=== PATIENT | male | born 2000 | race Caucasian/White ===

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

== ENCOUNTER 2021-07-24 16:18 | Emergency (ER) | payer OTHER ==
[~2021-07-24] VITALS: Ht 182.9 cm; Wt 77.3 kg
[~2021-07-24 16:18] MED LIST: CEPH500C PO
[2021-07-24 16:23] VITALS: BP 139/70
[2021-07-24] MEDS ORDERED: LIDOCAINE 2% MDV 20ML VIAL SC ONE (16:55)
== END 2021-07-24 17:25 | disposition home or self-care (01) ==
LOC: M ED 16:18 → EDBD 16:18 → M ED 17:25
DX: S61.213A Laceration without foreign body of left middle finger without damage to nail, initial encounter (principal); W26.0XXA Contact with knife, initial encounter; Y92.9 Unspecified place or not applicable; Y93.9 Activity, unspecified; Y99.9 Unspecified external cause status

== ENCOUNTER 2021-11-29 16:21 | Emergency (ER) | payer OTHER ==
[~2021-11-29] VITALS: Ht 182.9 cm; Wt 80.7 kg
[2021-11-29 18:11] LABS: HEMOGLOBIN 12.3 g/dl (13.5-17.5); MEAN CORPUSCULAR HGB CONC 33.2 g/dl (32.0-36.5); MEAN CORPUSCULAR VOLUME 87.3 fl (80.0-96.0); PLATELET COUNT, AUTOMATED 288 10^3/uL (150-450); RED BLOOD COUNT 4.24 10^6/uL (4.30-6.10); WHITE BLOOD COUNT 7.6 10^3/uL (4.0-10.0)
[2021-11-29 18:31] LABS: AMPHETAMINES LEVEL URINE NEGATIVE (NEGATIVE); BARBITURATES URINE NEGATIVE (NEGATIVE); BENZODIAZEPINES URINE NEGATIVE (NEGATIVE); CANNABINOIDS URINE NEGATIVE (NEGATIVE); COCAINE METABOLITE URINE NEGATIVE (NEGATIVE); METHADONE URINE NEGATIVE (NEGATIVE); OPIATES URINE NEGATIVE (NEGATIVE); PHENCYCLIDINE URINE NEGATIVE (NEGATIVE)
[2021-11-29 18:45] LABS: ACETAMINOPHEN LEVEL < 2.0 UG/ML (10.0-30.0); ALBUMIN 4.2 GM/DL (3.2-5.2); ALT/SGPT 24 U/L (12-78); BILIRUBIN,DIRECT 0.2 MG/DL (0.0-0.2); BILIRUBIN,TOTAL 0.8 MG/DL (0.2-1.0); BLOOD UREA NITROGEN 19 MG/DL (7-18); CALCIUM LEVEL 9.2 MG/DL (8.5-10.1); CARBON DIOXIDE LEVEL 28 MEQ/L (21-32); CHLORIDE LEVEL 108 MEQ/L (98-107); CREATININE FOR GFR 1.13 MG/DL (0.70-1.30); ETHYL ALCOHOL (ETHANOL) < 0.003 % (0.000-0.010); GLUCOSE, FASTING 93 MG/DL (70-100); POTASSIUM SERUM 4.2 MEQ/L (3.5-5.1); SALICYLATE LEVEL < 1.7 MG/DL (5.0-30.0); SODIUM LEVEL 139 MEQ/L (136-145); TOTAL PROTEIN 7.5 GM/DL (6.4-8.2)
[2021-11-29] MEDS ORDERED: HOME MED LIST COMPLETE! XX SCH (18:45)
[2021-11-29 20:40] VITALS: BP 137/89
== END 2021-11-29 20:43 | disposition home or self-care (01) ==
LOC: M ED 16:21
DX: F32.A Depression, unspecified (principal)

== ENCOUNTER 2022-09-19 19:34 | Emergency (ER) | payer OTHER ==
[~2022-09-19] VITALS: Ht 182.9 cm; Wt 79.8 kg
[2022-09-19 19:34] VITALS: BP 146/88
== END 2022-09-19 21:39 | disposition left against medical advice (07) ==
LOC: M ED 19:34
DX: M54.9 Dorsalgia, unspecified (principal); Z53.21 Procedure and treatment not carried out due to patient leaving prior to being seen by health care provider

== ENCOUNTER 2022-10-22 10:50 | Emergency (ER) | payer OTHER ==
[~2022-10-22] VITALS: Ht 182.9 cm; Wt 77.7 kg
[2022-10-22 10:51] VITALS: BP 125/60
[2022-10-22] MEDS ORDERED: OXYMETAZOLINE 0.05% NASAL SPRAY (AFRIN) STA (11:40)
[2022-10-22] MEDS ORDERED: LORA24TA PO (11:41)
== END 2022-10-22 11:52 | disposition home or self-care (01) ==
LOC: M ED 10:50
DX: R04.0 Epistaxis (principal); J30.2 Other seasonal allergic rhinitis

== ENCOUNTER 2022-10-24 23:30 | Emergency (ER) | payer OTHER ==
[~2022-10-24] VITALS: Ht 182.9 cm; Wt 77.2 kg
[~2022-10-24 23:30] MED LIST changes: +LORA24TA PO
[2022-10-25 00:47] LABS: HEMATOCRIT 36.4 % (42.0-52.0); HEMOGLOBIN 11.9 g/dl (13.5-17.5); MEAN CORPUSCULAR HEMOGLOBIN 28.4 pg (27.0-33.0); MEAN CORPUSCULAR HGB CONC 32.7 g/dl (32.0-36.5); MEAN CORPUSCULAR VOLUME 86.9 fl (80.0-96.0); PLATELET COUNT, AUTOMATED 294 10^3/uL (150-450); RED BLOOD COUNT 4.19 10^6/uL (4.30-6.10); WHITE BLOOD COUNT 7.4 10^3/uL (4.0-10.0)
[2022-10-25 00:56] LABS: ETHYL ALCOHOL (ETHANOL) < 0.003 % (0.000-0.010)
[2022-10-25 00:57] LABS: ACETAMINOPHEN LEVEL < 2.0 UG/ML (10.0-20.0)
[2022-10-25 00:58] LABS: ALBUMIN 4.3 G/DL (3.2-5.2); ALKALINE PHOSPHATASE 90 U/L (46-116); ALT/SGPT 10 U/L (7.0-40); AST/SGOT 9 U/L (<34); BILIRUBIN,DIRECT 0.1 MG/DL (<0.4); BILIRUBIN,TOTAL 0.4 MG/DL (0.3-1.2); BLOOD UREA NITROGEN 14 MG/DL (9-23); CALCIUM LEVEL 9.7 MG/DL (8.5-10.1); CARBON DIOXIDE LEVEL 27 MMOL/L (20-31); CHLORIDE LEVEL 105 MMOL/L (98-107); CREATININE FOR GFR 0.81 MG/DL (0.70-1.30); GLOMERULAR FILTRATION RATE > 60.0 (>60); GLUCOSE, FASTING 100 MG/DL (60-100); POTASSIUM SERUM 3.7 MMOL/L (3.5-5.1); SALICYLATE LEVEL < 3.0 MG/DL (<30); SODIUM LEVEL 139 MMOL/L (136-145); TOTAL PROTEIN 7.5 G/DL (5.7-8.2)
[2022-10-25 00:59] LABS: THYROID STIMULATING HORMONE 6.252 uIU/ML (0.55-4.78)
[2022-10-25 01:10] LABS: AMPHETAMINES LEVEL URINE NEGATIVE (NEGATIVE); BARBITURATES URINE NEGATIVE (NEGATIVE); BENZODIAZEPINES URINE NEGATIVE (NEGATIVE); CANNABINOIDS URINE NEGATIVE (NEGATIVE); COCAINE METABOLITE URINE NEGATIVE (NEGATIVE); METHADONE URINE NEGATIVE (NEGATIVE); OPIATES URINE NEGATIVE (NEGATIVE); PHENCYCLIDINE URINE NEGATIVE (NEGATIVE)
[2022-10-25] MEDS ORDERED: HOME MED LIST COMPLETE! XX SCH (06:20)
[2022-10-25 14:48] VITALS: BP 124/62; TEMP 97.8; O2SAT 98
== END 2022-10-25 14:51 | disposition home or self-care (01) ==
LOC: M ED 23:30
DX: F43.9 Reaction to severe stress, unspecified (principal); F43.10 Post-traumatic stress disorder, unspecified

== ENCOUNTER 2023-01-02 17:41 | Inpatient (IN) | payer OTHER ==
[~2023-01-02] VITALS: Ht 182.9 cm; Wt 77.3 kg
[2023-01-02 18:25] LABS: HEMATOCRIT 39.4 % (42.0-52.0); HEMOGLOBIN 13.1 g/dl (13.5-17.5); MEAN CORPUSCULAR HGB CONC 33.2 g/dl (32.0-36.5); MEAN CORPUSCULAR VOLUME 87.4 fl (80.0-96.0); PLATELET COUNT, AUTOMATED 332 10^3/uL (150-450); RED BLOOD COUNT 4.51 10^6/uL (4.30-6.10); WHITE BLOOD COUNT 7.5 10^3/uL (4.0-10.0)
[2023-01-02 18:51] LABS: ETHYL ALCOHOL (ETHANOL) < 0.003 % (0.000-0.010)
[2023-01-02 18:52] LABS: ACETAMINOPHEN LEVEL < 2.0 UG/ML (10.0-20.0)
[2023-01-02 18:53] LABS: ALBUMIN 4.4 G/DL (3.2-5.2); ALKALINE PHOSPHATASE 92 U/L (46-116); ALT/SGPT 11 U/L (7.0-40); AST/SGOT 9 U/L (<34); BILIRUBIN,DIRECT 0.2 MG/DL (<0.4); BILIRUBIN,TOTAL 0.5 MG/DL (0.3-1.2); BLOOD UREA NITROGEN 17 MG/DL (9-23); CALCIUM LEVEL 9.6 MG/DL (8.5-10.1); CARBON DIOXIDE LEVEL 25 MMOL/L (20-31); CHLORIDE LEVEL 104 MMOL/L (98-107); CREATININE FOR GFR 0.78 MG/DL (0.70-1.30); GLOMERULAR FILTRATION RATE > 60.0 (>60); GLUCOSE, FASTING 87 MG/DL (60-100); POTASSIUM SERUM 3.8 MMOL/L (3.5-5.1); SALICYLATE LEVEL < 3.0 MG/DL (<30); SODIUM LEVEL 139 MMOL/L (136-145); TOTAL PROTEIN 7.6 G/DL (5.7-8.2)
[2023-01-02 18:55] LABS: THYROID STIMULATING HORMONE 1.744 uIU/ML (0.55-4.78)
[2023-01-02 21:50] LABS: AMPHETAMINES LEVEL URINE NEGATIVE (NEGATIVE); BARBITURATES URINE NEGATIVE (NEGATIVE); BENZODIAZEPINES URINE NEGATIVE (NEGATIVE); CANNABINOIDS URINE NEGATIVE (NEGATIVE); COCAINE METABOLITE URINE NEGATIVE (NEGATIVE); METHADONE URINE NEGATIVE (NEGATIVE); OPIATES URINE NEGATIVE (NEGATIVE); PHENCYCLIDINE URINE NEGATIVE (NEGATIVE)
[2023-01-02] MEDS ORDERED: HOME MED LIST COMPLETE! XX SCH (21:55)
[2023-01-02] MEDS ORDERED: diphenhydrAMINE 25MG CAP PO PRN (22:20)
[2023-01-02] MEDS ORDERED: ACETAMINOPHEN TAB 650MG DOSE (2X325MG) PO PRN (22:20)
[2023-01-02] MEDS ORDERED: IBUPROFEN 400MG TAB PO PRN (22:20)
[2023-01-02] MEDS ORDERED: MOM 30ML SUSPENSION UDC PO PRN (22:20)
[2023-01-02] MEDS ORDERED: MAALOX 30 ML SUSP *UDC PO PRN (22:20)
[2023-01-02] MEDS ORDERED: traZODone 50 MG TAB PO PRN (22:20)
[2023-01-03 02:09] VITALS: BP 120/56; TEMP 97.1; O2SAT 98
[2023-01-03 18:58] VITALS: BP 131/58; TEMP 98.6
[2023-01-04 06:32] VITALS: BP 123/71; TEMP 97.6; O2SAT 100
[2023-01-04 18:31] VITALS: BP 139/71; TEMP 97.5
[2023-01-05 06:22] VITALS: BP 112/63; TEMP 98.3; O2SAT 99
[2023-01-05 18:00] VITALS: BP 135/76; TEMP 97.4
[2023-01-06 06:13] VITALS: BP 102/56; TEMP 98.3; O2SAT 97
== END 2023-01-06 11:31 | disposition home or self-care (01) | DRG 885 ==
LOC: M ED 17:41 → M ED INP 22:18 → M PSY 01-03 00:08
PROVIDERS: ADMIT Psychiatry & Neurology Psychiatry; ATTEND Student in an Organized Health Care Education/Training Program
DX: F39 Unspecified mood [affective] disorder (principal); R45.851 Suicidal ideations; F31.9 Bipolar disorder, unspecified; F60.2 Antisocial personality disorder; Z81.8 Family history of other mental and behavioral disorders; Z81.1 Family history of alcohol abuse and dependence; Z81.3 Family history of other psychoactive substance abuse and dependence; Z63.4 Disappearance and death of family member

== ENCOUNTER 2023-01-07 01:44 | Inpatient (IN) | payer OTHER ==
[~2023-01-07] VITALS: Ht 182.9 cm; Wt 77.3 kg
[2023-01-07 02:05] LABS: BASO # 0.1 10^3/uL (0.0-0.2); BASO % 1.4 % (0.0-1.0); EOS # 0.5 10^3/uL (0.0-0.5); EOS % 6.1 % (0.0-3.0); HEMATOCRIT 41.2 % (42.0-52.0); LYMPH % 34.1 % (24.0-44.0); MEAN CORPUSCULAR HEMOGLOBIN 29.2 pg (27.0-33.0); MONO # 0.9 10^3/uL (0.0-0.8); MONO % 10.2 % (2.0-8.0); NEUTROPHILS # 4.2 10^3/uL (1.5-8.5); PLATELET COUNT, AUTOMATED 337 10^3/uL (150-450); RED BLOOD COUNT 4.79 10^6/uL (4.30-6.10); WHITE BLOOD COUNT 8.7 10^3/uL (4.0-10.0)
[2023-01-07 02:37] LABS: ETHYL ALCOHOL (ETHANOL) < 0.003 % (0.000-0.010)
[2023-01-07 02:38] LABS: ACETAMINOPHEN LEVEL < 2.0 UG/ML (10.0-20.0); ALBUMIN 4.7 G/DL (3.2-5.2); ALKALINE PHOSPHATASE 97 U/L (46-116); ALT/SGPT 20 U/L (7.0-40); AST/SGOT 13 U/L (<34); BILIRUBIN,DIRECT 0.2 MG/DL (<0.4); BILIRUBIN,TOTAL 0.4 MG/DL (0.3-1.2); BLOOD UREA NITROGEN 15 MG/DL (9-23); CALCIUM LEVEL 9.9 MG/DL (8.5-10.1); CARBON DIOXIDE LEVEL 25 MMOL/L (20-31); CHLORIDE LEVEL 103 MMOL/L (98-107); CREATININE FOR GFR 0.79 MG/DL (0.70-1.30); GLOMERULAR FILTRATION RATE > 60.0 (>60); GLUCOSE, FASTING 100 MG/DL (60-100); POTASSIUM SERUM 3.8 MMOL/L (3.5-5.1); SALICYLATE LEVEL < 3.0 MG/DL (<30); SODIUM LEVEL 138 MMOL/L (136-145); TOTAL PROTEIN 8.2 G/DL (5.7-8.2)
[2023-01-07 02:40] LABS: THYROID STIMULATING HORMONE 6.074 uIU/ML (0.55-4.78)
[2023-01-07 02:45] LABS: CPK CREATINE PHOSPHOKINASE 111 U/L (46-171)
[2023-01-07] MEDS ORDERED: HOME MED LIST COMPLETE! XX SCH (04:15)
[2023-01-07 13:45] LABS: AMPHETAMINES LEVEL URINE NEGATIVE (NEGATIVE); BARBITURATES URINE NEGATIVE (NEGATIVE); BENZODIAZEPINES URINE NEGATIVE (NEGATIVE); CANNABINOIDS URINE NEGATIVE (NEGATIVE); COCAINE METABOLITE URINE NEGATIVE (NEGATIVE); METHADONE URINE NEGATIVE (NEGATIVE); OPIATES URINE NEGATIVE (NEGATIVE); PHENCYCLIDINE URINE NEGATIVE (NEGATIVE)
[2023-01-08] MEDS ORDERED: LORazepam 2 MG/ML 1ML VIAL IM STA ×3 (16:06→18:23)
[2023-01-08] MEDS ORDERED: OLANZapine INTRAMUSCULAR 10MG VIAL IM ONE ×2 (16:10→17:00)
[2023-01-09] MEDS ORDERED: ACETAMINOPHEN TAB 650MG DOSE (2X325MG) PO PRN (12:45)
[2023-01-09] MEDS ORDERED: MAALOX 30 ML SUSP *UDC PO PRN (12:45)
[2023-01-09] MEDS ORDERED: IBUPROFEN 400MG TAB PO PRN (12:45)
[2023-01-09] MEDS ORDERED: MOM 30ML SUSPENSION UDC PO PRN (12:45)
[2023-01-09] MEDS ORDERED: diphenhydrAMINE 25MG CAP PO PRN (12:45)
[2023-01-09 21:40] VITALS: BP 136/84; O2SAT 97
[2023-01-10] MEDS: traZODone 50 MG TAB PO PRN ×2 (00:03→21:25)
[2023-01-10 06:11] VITALS: BP 111/56; TEMP 97.7; O2SAT 97
[2023-01-10] MEDS: OLANZapine 5 MG TAB PO SCH ×2 (09:38→21:00)
[2023-01-10 19:23] VITALS: BP 135/73; TEMP 97.3
[2023-01-11 06:30] VITALS: BP 104/53; TEMP 97.1; O2SAT 99
[2023-01-11] MEDS: OLANZapine 5 MG TAB PO SCH ×2 (09:59→22:06)
[2023-01-11 18:29] VITALS: BP 138/86; TEMP 97.8; O2SAT 97
[2023-01-12] MEDS ORDERED: OLAN1TAB16 PO (06:25)
[2023-01-12] MEDS ORDERED: TRAZ-252 PO (06:25)
[2023-01-12 07:12] VITALS: BP 117/56; TEMP 97.3; O2SAT 97
[2023-01-12] MEDS: OLANZapine 5 MG TAB PO SCH (09:15)
== END 2023-01-12 10:44 | disposition home or self-care (01) | DRG 885 ==
LOC: M ED 01:44 → EDBD 01:44 → M ED INP 01-09 12:45 → M PSY 01-09 21:42
PROVIDERS: ADMIT Student in an Organized Health Care Education/Training Program; ATTEND Student in an Organized Health Care Education/Training Program
DX: F39 Unspecified mood [affective] disorder (principal); R45.851 Suicidal ideations; Z76.5 Malingerer [conscious simulation]; Z81.8 Family history of other mental and behavioral disorders; Z81.1 Family history of alcohol abuse and dependence; Z81.3 Family history of other psychoactive substance abuse and dependence; F60.2 Antisocial personality disorder; F60.81 Narcissistic personality disorder; Z62.810 Personal history of physical and sexual abuse in childhood; Z62.811 Personal history of psychological abuse in childhood

== ENCOUNTER 2023-02-25 21:26 | Emergency (ER) | payer OTHER ==
[~2023-02-25] VITALS: Ht 188 cm; Wt 95.5 kg
[~2023-02-25 21:26] MED LIST changes: +OLAN1TAB16 PO; +TRAZ-252 PO
[2023-02-25] MEDS ORDERED: LORazepam 2 MG/ML 1ML VIAL IM STA (21:43)
[2023-02-25] MEDS ORDERED: HALOPERIDOL 5MG/ML 1ML VIAL IM ONE (21:45)
[2023-02-25] MEDS ORDERED: diphenhydrAMINE 50MG/ML VIAL IM ONE (21:45)
[2023-02-25 22:06] LABS: HEMATOCRIT 37.1 % (42.0-52.0); HEMOGLOBIN 12.7 g/dl (13.5-17.5); MEAN CORPUSCULAR HEMOGLOBIN 29.5 pg (27.0-33.0); MEAN CORPUSCULAR HGB CONC 34.2 g/dl (32.0-36.5); MEAN CORPUSCULAR VOLUME 86.1 fl (80.0-96.0); PLATELET COUNT, AUTOMATED 327 10^3/uL (150-450); RED BLOOD COUNT 4.31 10^6/uL (4.30-6.10)
[2023-02-25 22:24] LABS: AMPHETAMINES LEVEL URINE NEGATIVE (NEGATIVE); BARBITURATES URINE NEGATIVE (NEGATIVE); CANNABINOIDS URINE NEGATIVE (NEGATIVE); COCAINE METABOLITE URINE NEGATIVE (NEGATIVE); METHADONE URINE NEGATIVE (NEGATIVE); PHENCYCLIDINE URINE NEGATIVE (NEGATIVE)
[2023-02-25 22:25] LABS: BENZODIAZEPINES URINE NEGATIVE (NEGATIVE)
[2023-02-25 22:26] LABS: OPIATES URINE NEGATIVE (NEGATIVE)
[2023-02-25 22:27] LABS: ETHYL ALCOHOL (ETHANOL) < 0.003 % (0.000-0.010)
[2023-02-25 22:28] LABS: SALICYLATE LEVEL < 3.0 MG/DL (<30)
[2023-02-25 22:29] LABS: ACETAMINOPHEN LEVEL < 2.0 UG/ML (10.0-20.0); ALBUMIN 4.5 G/DL (3.2-5.2); ALKALINE PHOSPHATASE 90 U/L (46-116); ALT/SGPT 10 U/L (7.0-40); AST/SGOT 17 U/L (<34); BILIRUBIN,DIRECT 0.2 MG/DL (<0.4); BILIRUBIN,TOTAL 0.7 MG/DL (0.3-1.2); BLOOD UREA NITROGEN 14 MG/DL (9-23); CALCIUM LEVEL 9.5 MG/DL (8.5-10.1); CARBON DIOXIDE LEVEL 24 MMOL/L (20-31); CHLORIDE LEVEL 108 MMOL/L (98-107); CREATININE FOR GFR 0.83 MG/DL (0.70-1.30); GLOMERULAR FILTRATION RATE > 60.0 (>60); GLUCOSE, FASTING 85 MG/DL (60-100); POTASSIUM SERUM 3.6 MMOL/L (3.5-5.1); SODIUM LEVEL 140 MMOL/L (136-145); TOTAL PROTEIN 7.2 G/DL (5.7-8.2)
[2023-02-25 22:31] LABS: THYROID STIMULATING HORMONE 1.128 uIU/ML (0.55-4.78)
[2023-02-26] MEDS ORDERED: MED REC CURRENTLY UNOBTAINABLE XX SCH (00:45)
[2023-02-26] MEDS ORDERED: TRAZ-252 PO (13:02)
[2023-02-26] MEDS ORDERED: LORA-930 PO (13:02)
[2023-02-26] MEDS ORDERED: OLAN1TAB16 PO (13:02)
[2023-02-26] MEDS ORDERED: HOME MED LIST COMPLETE! XX SCH (13:10)
[2023-02-28] MEDS ORDERED: OLANZapine 5 MG TAB PO PRN (07:35)
[2023-02-28] MEDS ORDERED: traZODone 50 MG TAB PO PRN (07:35)
[2023-02-28] MEDS ORDERED: LORATADINE 10 MG TAB PO SCH (09:00)
[2023-02-28 14:14] VITALS: BP 136/70; TEMP 97.3; O2SAT 100
== END 2023-02-28 14:15 | disposition home or self-care (01) ==
LOC: M ED 21:26
DX: R45.851 Suicidal ideations (principal); Z79.899 Other long term (current) drug therapy; R00.1 Bradycardia, unspecified
CPT/HCPCS: 36415; 80048; 80076; 80143; 80307; 82077; 84443; 85027; 87635; 93005; 96372; 99285; J1200; J1630; J2060